=== PATIENT | male | born 1980 | race Caucasian/White ===

== ENCOUNTER 2020-12-06 14:01 | Outpatient (REF) | payer BC, SELFPAY | END 2020-12-06 14:02 | disposition home or self-care (01) | LOC: HO.LAB 14:01 | PROVIDERS: PCP Internal Medicine; Visit Provider Internal Medicine | DX: Z20.822 Contact with and (suspected) exposure to COVID-19 (principal) | CPT/HCPCS: 36415; C9803; U0003; U0005 ==

== ENCOUNTER 2021-02-23 10:41 | Outpatient (REF) | payer BC, SELFPAY ==
[2021-02-23 10:44] LABS: MANUAL DIFF FLAG NO
[2021-02-23 11:11] LABS: Basophils Absolute Auto 0.1 X10*3/uL (0.0-0.2); Basophils Percent Auto 0.9 % (0-2); Eosinophils Absolute Auto 0.4 X10*3/uL (0.0-0.4); Eosinophils Percent Auto 5.9 % (0-4); Hematocrit 40.3 % (42-52); Hemoglobin 13.7 g/dl (14.0-18.0); Imm Gran Abs Auto 0.03 X10*3/uL (0.00-0.03); Imm Gran Pct Auto 0.5 % (0.0-0.4); Lymphocytes Absolute Auto 2.6 X10*3/uL (1.2-4.9); Lymphocytes Percent Auto 39.3 % (20-40); Mean Corpuscular Hemoglobin 31.1 pg (27.0-33.0); Mean Corpuscular Volume 91.4 fL (80-98); Mean Platelet Volume 11.1 fL (9.4-12.4); Monocytes Absolute Auto 0.6 X10*3/uL (0.1-1.2); Monocytes Percent Auto 9.1 % (2-11); Neutrophils Absolute Auto 2.9 X10*3/uL (2.0-8.3); Neutrophils Percent Auto 44.3 % (45-73); Platelet Count 274 X10*3/uL (160-400); Red Blood Count 4.41 X10*6/uL (4.60-5.80); Red Cell Distribution Width 12.2 % (11.0-16.0); White Blood Count 6.6 X10*3/uL (4.8-10.8)
[2021-02-23 11:33] LABS: Glucose Urine UA NEG (NEG); Leukocyte Esterase Urine NEG (NEG); Nitrite Urine NEG (NEG); Specific Gravity - Urine >= 1.030 (1.005-1.025); Urine Blood NEG (NEG); Urine Ketones 5 MG/DL (NEG); Urine Protein NEG (NEG-TRACE)
[2021-02-23 11:37] LABS: Appearance Urine CLEAR; Color Urine YELLOW
[2021-02-23 11:44] LABS: Alanine Aminotransferase 22 U/L (0-40); Albumin Level 4.3 g/dL (3.5-5.0); Alkaline Phosphatase 80 U/L (39-117); Anion Gap 13 (12-20); Aspartate Amino Transferase 24 U/L (5-37); Bilirubin Total 0.7 mg/dL (0.0-1.0); Blood Urea Nitrogen 15 mg/dL (9-16); Carbon Dioxide 28 mmol/L (22-29); Chloride 102 mmol/L (96-108); Cholesterol 187 mg/dL; Estimated Glomerular Filt Rate > 60; Glucose Fasting 85 mg/dL (60-99); HDL Cholesterol 60 mg/dL; LDL Cholesterol Calculated 108 mg/dl; Potassium 3.9 mmol/L (3.3-5.1); Sodium 139 mmol/L (135-145); Total Protein 6.8 g/dL (6.5-8.0); Triglycerides 96 mg/dL
[2021-02-23 12:08] LABS: PSA,Total (Free>4and<10) 0.28 ng/mL (0.00-4.00)
== END 2021-02-23 10:42 | disposition home or self-care (01) ==
LOC: HO.LNP 10:41
PROVIDERS: Visit Provider Internal Medicine
DX: Z00.00 Encounter for general adult medical examination without abnormal findings (principal)
CPT/HCPCS: 80053; 80061; 81003; 84153; 85025

== ENCOUNTER 2022-01-11 12:13 | Outpatient (REF) | payer BC, SELFPAY ==
[2022-01-11 12:53] LABS: Alanine Aminotransferase 36 U/L (0-40); Albumin Level 4.3 g/dL (3.5-5.0); Alkaline Phosphatase 76 U/L (39-117); Aspartate Amino Transferase 35 U/L (5-37); Bilirubin Direct 0.3 mg/dL (0.0-0.5); Bilirubin Total 0.6 mg/dL (0.0-1.0)
== END 2022-01-11 12:14 | disposition home or self-care (01) ==
LOC: HO.LNP 12:13
PROVIDERS: Visit Provider Internal Medicine
DX: R79.89 Other specified abnormal findings of blood chemistry (principal)
CPT/HCPCS: 80076

== ENCOUNTER 2025-05-10 16:39 | Emergency (ER) | payer BC, SELFPAY ==
--- NOTE | ~2025-05-10 | XR_ITS ---
CLINICAL HISTORY: fall, pain Radiographs of the chest and left ribs Comparison: None available Findings: Nondisplaced fracture of the left 7th rib at the anterior aspect. Normal heart size. Normal mediastinal contours. No pneumothorax. No opacity. No pleural effusion. Normal upper abdomen. Impression: Nondisplaced fracture of the left 7th rib at the anterior aspect. This document has been electronically signed by: Dinora Amaya MD on 05/10/2025 18:09:09
[2025-05-10 17:04] VITALS: BP 133/91; PULSE 113; RESP 16; TEMP 36.7; O2SAT 97; BMI 22.1
--- NOTE | 2025-05-10 17:04 | ED_ITS ---
HPI - Seizure General Chief Complaint: Seizure Stated Complaint: Seizure Related Data Allergies Allergy/AdvReac Type Severity Reaction Status Date / Time No Known Allergies (No Known Allergy Verified 05/10/25 17:10 Allergies*) [facility] Social History Social History Advance Directives: No Advance Directives Information Provided: No Do you have a plan to hurt others: No Plan Physical Exam 2 Vital Signs: Vital Signs: Last Vital Signs Temp 98.1 F 05/10/25 17:04 Pulse 113 H 05/10/25 17:04 Resp 16 05/10/25 17:04 BP 133/91 H 05/10/25 17:04 Pulse Ox 97 05/10/25 17:04 BMI result Body Mass Index 22.1 Course Course Course Narrative: This is an RME performed by Carol Abrams CNP: Additional HPI, ROS, PE not included below will be deferred to primary provider. Patient is a 44-year-old male who presents emergency department for evaluation. He reports on 05/08/2025 he was [place] his bike [place] the mall with his son, when he believes he had a seizure. He awoke on the floor with injuries ?all over? was not certain what happened. Admits that over the past year he has been experiencing new onset of seizures. He has only sought evaluation at the emergency department [facility] - he has been prescribed Keppra 500 mg to take twice daily but he is only taking it once daily when he does remember. He admits that he will have a breakthrough seizure forgets to take the Keppra. Did not take it onset . He is having pain to the left lateral chest, no shortness of breath. States he would like a refill of Keppra, possible dosage increase, and a doctor's note until he is able to establish care with a primary care doctor as he does not have 1 more has he seen a neurologist. Exam: A&Ox3, no focal neurological deficits. LSCTA, TTP L anterolateral chest wall along ribs 4-10 without crepitus or palpable deformity Plan: rib xr, serum labs Reevaluation(s) Reevaluation #1: LWCT Medical Decision Making Lab Data 05/10/25 17:21 05/10/25 17:21 Labs: Lab Results 05/10/25 Range/Units 17:21 WBC 8.8 (4.8-10.8) X10*3/uL RBC 4.70 (4.60-5.80) X10*6/uL Hgb 14.5 (14.0-18.0) g/dl Hct 41.5 L (42.0-52.0) % MCV 88.3 (80.0-98.0) fL MCH 30.9 (27.0-33.0) pg MCHC 34.9 (31.0-36.0) g/dl RDW 12.6 (11.0-16.0) % Plt Count 310 (160-400) X10*3/uL MPV 9.9 (9.4-12.4) fL Immature Gran % (Auto) 0.6 H (0.0-0.4) % Neut % (Auto) 60.7 (45-73) % Lymph % (Auto) 28.7 (20-40) % Stephenson % (Auto) 7.8 (2-11) % Eos % (Auto) 1.4 (0-4) % Baso % (Auto) 0.8 (0-2) % Lymph # (Auto) 2.5 (1.2-4.9) X10*3/uL Stephenson # (Auto) 0.7 (0.1-1.2) X10*3/uL Eos # (Auto) 0.1 (0.0-0.4) X10*3/uL Baso # (Auto) 0.1 (0.0-0.2) X10*3/uL Abs Immat Gran (auto) 0.05 H (0.00-0.03) X10*3/uL Absolute Neuts (auto) 5.4 (2.0-8.3) x10*3/uL Absolute Nucleated RBC 0.000 (0.0-0.012) X10*3/uL Nucleated RBC % (auto) 0.0 (0.0-0.2) /100WBC Sodium 140 (135-145) mmol/L Potassium 4.1 (3.3-5.1) mmol/L Chloride 104 (96-108) mmol/L Carbon Dioxide 25 (22-29) mmol/L Anion Gap 15 (12-20) BUN 14 (9-16) mg/dL Creatinine 0.81 (0.5-1.4) mg/dL Estim Creat Clear Calc 108.6 Estimated GFR > 60 Random Glucose 69 (60-115) mg/dL Calcium 9.1 (8.4-10.2) mg/dL Total Bilirubin 1.4 H (0.0-1.0) mg/dL AST 23 (5-37) U/L ALT 27 (0-40) U/L Alkaline Phosphatase 93 (39-117) U/L Total Protein 7.2 (6.5-8.0) g/dL Albumin 4.8 (3.5-5.0) g/dL Discharge Plan Discharge Clinical Impression: Diagnosis unknown Patient Disposition: Left W/O Completing Treatment Discharge Date/Time: 05/11/25 02:23
[2025-05-10 17:25] LABS: MANUAL DIFF FLAG NO
[2025-05-10 17:32] LABS: Hematocrit 41.5 % (42.0-52.0); Hemoglobin 14.5 g/dl (14.0-18.0); Imm Gran Abs Auto 0.05 X10*3/uL (0.00-0.03); Imm Gran Pct Auto 0.6 % (0.0-0.4); Lymphocytes Absolute Auto 2.5 X10*3/uL (1.2-4.9); Mean Corpuscular HGB Conc 34.9 g/dl (31.0-36.0); Mean Corpuscular Hemoglobin 30.9 pg (27.0-33.0); Mean Corpuscular Volume 88.3 fL (80.0-98.0); NRBC Abs Auto 0.000 X10*3/uL (0.0-0.012); NRBC Pct Auto 0.0 /100WBC (0.0-0.2); Platelet Count 310 X10*3/uL (160-400); Red Blood Count 4.70 X10*6/uL (4.60-5.80); White Blood Count 8.8 X10*3/uL (4.8-10.8)
[2025-05-10 17:43] LABS: Alanine Aminotransferase 27 U/L (0-40); Albumin Level 4.8 g/dL (3.5-5.0); Alkaline Phosphatase 93 U/L (39-117); Anion Gap 15 (12-20); Aspartate Amino Transferase 23 U/L (5-37); Blood Urea Nitrogen 14 mg/dL (9-16); Calcium 9.1 mg/dL (8.4-10.2); Carbon Dioxide 25 mmol/L (22-29); Chloride 104 mmol/L (96-108); Creatinine Clr Calc Pharmacy 108.6; Estimated Glomerular Filt Rate > 60; Potassium 4.1 mmol/L (3.3-5.1); Sodium 140 mmol/L (135-145); Total Protein 7.2 g/dL (6.5-8.0)
[2025-05-14 08:23] LABS: Levetiracetam Keppra 10.7 mcg/mL (6.0-46.0)
== END 2025-05-11 02:23 | disposition left against medical advice (07) ==
PROVIDERS: Nurse Practitioner Family; Emergency Provider Emergency Medicine
DX: R56.9 Unspecified convulsions (principal)
CPT/HCPCS: 36415; 71101; 80053; 80177; 85025; 99281; 99283

== ENCOUNTER → 2025-05-10 17:10 | Outpatient (BNV) | payer BC, SELFPAY | PROVIDERS: Visit Provider Radiology Diagnostic Radiology | DX: S22.32XA Fracture of one rib, left side, initial encounter for closed fracture (principal); W19.XXXA Unspecified fall, initial encounter | CPT/HCPCS: 71101 ==

== ENCOUNTER 2025-05-11 13:45 | Emergency (ER) | payer BC, SELFPAY ==
[2025-05-11 14:11] VITALS: BP 101/67; PULSE 98; RESP 16; TEMP 36.4; O2SAT 98; BMI 22.1
--- NOTE | 2025-05-11 14:19 | ED_ITS ---
HPI - General Adult General Chief complaint: General Medical Stated complaint: medication refill Time Seen by Provider: 05/11/25 14:19 Source: patient Mode of arrival: ambulatory Limitations: no limitations History of Present Illness ED Provider: Kennedy Paredes [facility] narrative: 44 yold male with pmh of seizure presents to the ED for medication refill. Patient presently asymptomatic. Related Data Previous Rx's ?Medication ?Instructions ?Recorded levetiracetam 500 mg tablet 500 mg PO Q12H 20 days #40 tabs 05/11/25 (Keppra) Allergies Allergy/AdvReac Type Severity Reaction Status Date / Time No Known Allergies (No Known Allergy Verified 05/11/25 14:17 Allergies*) Review of Systems Review of Systems: medication refill Yes all other systems are reviewed and are negative [facility] Social History Social History Advance Directives: No Advance Directives Information Provided: Yes Physical Exam ED Vital Signs: Vital Signs - 24 hr 05/11/25 14:11 Temperature 97.5 F Pulse Rate 98 Respiratory Rate 16 Blood Pressure 101/67 Pulse Oximetry 98 Oxygen Delivery Method Room Air BMI result Body Mass Index 22.1 Const General: cooperative, healthy appearing, comfortable, no acute distress, well developed, alert, awake and Physically active Orientation/consciousness: patient oriented x3 HENMT Head: Yes normal to inspection, Yes No palpable skull fracture present, Yes normocephalic and Yes atraumatic Eyes General: appearance normal, both eyes and all related structures Neck Neck: Yes normal visual inspection, Yes full ROM, Yes no lymphadenopathy, Yes no meningeal signs, Yes trachea midline, Yes supple, No anterior neck swelling and No tender Chest Chest palpation & inspection: normal inspection of the chest and normal palpation of entire chest wall Resp Effort & Inspection: normal respiratory effort and able to speak in complete sentences Auscultation: clear to auscultation bilaterally Cardio Jugular venous distension: no JVD Heart sounds: S1 normal heart sound present and S2 normal heart sound present GI Inspection: Yes normal to inspection Palpation (GI): Soft to palpation, not firm, nontender, no guarding and not rigid General: Yes no CVA tenderness Back/Spine/Pelvis Back: no CVA tenderness and No back tenderness Skin General skin exam: no rashes or lesions noted, elasticity normal and turgor normal Neuro General: patient oriented x3, gait normal, tone normal, moves all extremities, Normal light touch and pain sensation, no meningeal signs, no focal motor deficits and CN's II-XI intact bilaterally Extrem General: Yes normal to inspection, Yes full ROM and Yes capillary refill normal Psych Appearance: grossly normal, well kempt and not disheveled Medical Decision Making Medical Decision Making MDM Narrative: 44 Yold male with pmh of seizure presents to the ED for medication refill of keppra 500mg BID. Patient had a seizure this past Saturday and was evaluated at [facility]. Patient was seen here also last night had normal labs and had a chest x-ray which shows left rib fracture. Patient will be discharged with incentive spirometry and Keppra refill. No signs of head trauma. No need for head CT scan. Patient states usually when he misses med he has a seizure. Patient states no seizures since Saturday. Patient informed [facility]. Patient explained worrisome signs and informed to return to the ED immediately. Differential Diagnosis Differential Diagnoses: The differential diagnosis associated with the presentation includes (Seizure, medication refill) Admission/Observation Consideration of admission/observation: Escalation of care including admission/observation considered Independent Historian Clinical information obtained from an independent historian. History obtained from or confirmed by: Other (Patient) Prescription Management I considered prescription management with: Other (keppra) Discharge Plan Discharge Clinical Impression: Fracture of rib, Medication refill Patient Disposition: Home, Self-Care Instructions: Rib Fracture (ED) Additional Instructions: Recommend follow-up with primary care provider and surgeon. Return to the ED immediately for any chest pain, shortness of breath, coughing up blood, weakness, dizziness, another seizure, altered mental status, urinary/bowel incontinence, or any other concerning symptoms. Use your incentive spirometry every hour to prevent lung collapse Prescriptions: New levetiracetam [Keppra] 500 mg tablet 500 mg PO Q12H 20 Days Qty: 40 0RF Stand Alone Forms: Work/School Release Discharge Date/Time: 05/12/25 05:07 Print Language: [place] Citizen
--- OUTSIDE RECORDS SUMMARY | 2025-05-11 15:22 | XMS_ITS | Patient Health Record ---
Author Organization Lamberto Eli MD Address [address] [place], [place] [id number] Care Team Providers Care Membership Assistant Name Role Phone Lamberto Eli Primary Care Provider Allergies No Known Allergies Reason For Referral No Information Medications Medication SIG (Take, Route, Frequency, Duration) Notes Start Date End Date Status Naltrexone HCl 50 MG 1 tablet Orally Onc e a day for 30 days 01/11/2022 Active Indomethacin 25 MG 1 capsule with food or milk Orally Three times a day 09/05/2021 Not-Taking Sildenafil Citrate 50 MG one half Orally Once a day for 30 Not-Taking cloNIDine HCl 0.1 MG TAKE 1 TABLET BY MO UTH EVERY DAY NEEDED Active Escitalopram Oxalate 10 MG TAKE 1 TABLET BY MOUTH EVERY DAY FOR 30 DAYS for 90 Active amLODIPine Besylate 5 MG TAKE 1 TABLET B Y MOUTH EVERY DAY FOR 30 DAYS for 90 Active Immunizations Vaccine Route Administration Date Status Comme nts Flu Vaccine IM Intramuscular 11/20/2018 Administered pt navarro d flu shot at urgent care in [place] Fluarix Quadrivalent Unknown 07/18/2020 Administered CV S SARS-COV-2 Pfizer Unknown 02/25/2021 Administered SARS-COV-2 Pfizer Unknown 03/18/2021 Administered SARS-COV-2 Moderna Unknown 11/12/2021 Administered Fluarix Quadrivalent IM Intramuscular 11/26/2022 Administe red Problems Problem Type SNOMED Code ICD Code Onset Dates Problem Status W/U Status Risk Notes Problem 18735689 Anxiety (F41.9) Active confirmed Problem 312899905 Hemicrania continua (G44.51) Active confirmed Problem Essential hypertension (95001955) Essential (primary) hypertension (I10) Active confirmed Problem 958481204 Drug-induced erectile dysfunction (N52.2) Active confirmed Problem Alcohol abuse (82375013) Alcohol abuse (F10.10) Active confirmed Problem 98944270 Dysthymia (F34.1) Active confirmed Problem Blood tests prior to treatment or procedure (Z01.812) Active confirmed Problem 19510503 Vascular malformation (Q27.9) Active confirmed Plan Of Treatment Pending Test Test Name Order Date MRA BRAIN NO CONTRAST 08/21/2021 MRI BRAIN W&WO CONTRAST 08/21/2021 XR ORBITS FOR FOREIGN BODY 08/29/2021 Insurance Providers Payer Name Payer Address Payer Phone Subscriber Number Group Number Insured Name Patient Relationship to Insured Coverage Start Date Coverage End Date [employer] [address] [place], [place] [id number] [place] Self - patient is the insured
== END 2025-05-12 05:07 | disposition home or self-care (01) ==
PROVIDERS: Emergency Provider Emergency Medicine Emergency Medical Services
DX: Z76.0 Encounter for issue of repeat prescription (principal); R56.9 Unspecified convulsions
CPT/HCPCS: 99281; 99282